=== PATIENT | male | born 1990 | race Caucasian/White ===

== ENCOUNTER 2016-10-05 16:35 | Inpatient (IN) | payer BC ==
[2016-10-05 19:13] VITALS: BMI 23.6
--- NOTE | 2016-10-05 21:10 | HP ---
COWS - Scale Resting Pulse: 0= PA 80 or Below Sweatin=Flushed/Facial Moisture Restless Observation: 3= Extraneous Movement Pupil Size: 2= Moderately Dilated Bone or Joint Aches: 2= Severe Diffuse Aches Runny Nose/ Eye Tearin= Runny Nose/Eyes GI Upset > 30mins: 2= Nausea/Diarrhea Tremor Observation: 2= Slight Tremor Visible Yawning Observation: 2= >3x During Session Anxiety or Irritability: 2=Irritable/Anxious Goose Flesh Skin: 0=Smooth Skin COWS Score: 19 Admission ROS S - HPI Chief Complaint: I NEED HELP TO STOP USING HEROIN,COCAINE AND XANAX Allergies/Adverse Reactions: Allergies Allergy/AdvReac Type Severity Reaction Status Date / Time No Known Allergies Allergy Verified 06/26/12 15:01 History of Present Illness: THIS 26 YEARS OLD MALE WITH HEROIN,COCAINE AND XANAX DEPENDENCE,SEEKING DETOX, LAST TREATMENT 04/30 IN [facility] LAST DETOX [facility] 06/26/12 TO 07/01/12 WEIGHT LOSS NICOTINE DEPENDENCE LONGEST PERIOD OF SOBRIETY 1 AND HALF YEARS - Ebola screening Have you traveled outside of the country in the last 21 days: No Have you had contact with anyone from an Ebola affected area: No Have you been sick,other than usual withdrawal symptoms: No Do you have a fever: No - Review of Systems Constitutional: Chills, Loss of Appetite, Malaise, Night Sweats, Changes in sleep, Unexplained wgt Loss EENT: reports: Tearing, Nose Congestion Respiratory: reports: No Symptoms reported Cardiac: reports: No Symptoms Reported GI: reports: Diarrhea, Nausea, Vomiting, Abdominal cramping : reports: No Symptoms Reported Musculoskeletal: reports: Back Pain, Joint Pain, Muscle Pain Integumentary: reports: Dryness Neuro: reports: Headache, Tremors Endocrine: reports: No Symptoms Reported Hematology: reports: No Symptoms Reported Psychiatric: reports: No Sypmtoms Reported, Judgement Intact, Mood/Affect Appropiate, Orientated x3 (INSOMNIA), Anxious, Depressed Patient History - Patient Medical History Hx Asthma: Yes (ON ALBUTROL INHALER) Hx Chronic Obstructive Pulmonary Disease (COPD): No Hx Cancer: No Hx Cardiac Disorders: No Hx Hypertension: No Hx Hypercholesterolemia: No Hx Pacemaker: No HX Cerebrovascular Accident: No Hx Seizures: Yes (DRUG WITHDRAWAL 04/02) Hx Dementia: No Hx Diabetes: No Hx Gastrointestinal Disorders: No Hx Genitourinary Disorders: No Hx Sexually Transmitted Disorders: No Hx Renal Disease (ESRD): No Hx Thyroid Disease: No Hx Human Immunodeficiency Virus (HIV): No (LAST 04/30 NEGATIVE) Hx Hepatitis C: No Hx Depression: Yes (currently not on treatment) Hx Suicide Attempt: No Hx Bipolar Disorder: No Hx Schizophrenia: No Other Medical History: ANXIETY,DEPRESSIN,INSOMNIA - Patient Surgical History Past Surgical History: No Hx Neurologic Surgery: No Hx Cataract Extraction: No Hx Cardiac Surgery: No Hx Lung Surgery: No Hx Breast Surgery: No Hx Breast Biopsy: No Hx Abdominal Surgery: No Hx Appendectomy: No Hx Cholecystectomy: No Hx Genitourinary Surgery: No Hx Section: No Hx Orthopedic Surgery: No Anesthesia Reaction: No - PPD History Previous Implant?: Yes Documented Results: Negative w/o proof Implanted On Prior [facility] Admission?: Yes Date: 06/28/12 PPD to be Administered?: Yes - Smoking Cessation Smoking history: Current every day smoker Have you smoked in the past 12 months: Yes Aproximately how many cigarettes per day: 20 Cigars Per Day: 0 Hx Chewing Tobacco Use: No Initiated information on smoking cessation: Yes 'Breaking Loose' booklet given: 10/05/16 - Substance & Tx. History Hx Alcohol Use: No Hx Substance Use: Yes Substance Use Type: Cocaine, Heroin, Prescribed Hx Substance Use Treatment: Yes ([facility] 06/26/12 TO 07/01/12 DETOX) - Substances Abused Heroin Route: Injection Frequency: Daily Amount used: 5 BAGS Age of first use: 17 Date of Last Use: 10/05/16 Alprazolam (Xanax) Route: Oral Frequency: 1-2 times per week Amount used: 4 MGS Age of first use: 17 Date of Last Use: 09/28/16 Cocaine Route: Injection Frequency: 1-2 times per week Amount used: 50$ Age of first use: 17 Date of Last Use: 10/03/16 Family Disease History - Family Disease History Family History: Denies Admission Physical Exam BHS - Vital Signs Vital Signs: Vital Signs - 24 hr 10/05/16 19:10 Temperature 98.2 F Pulse Rate 78 Respiratory 18 Rate Blood Pressure 105/62 - Physical General Appearance: Yes: Moderate Distress, Tremorous, Irritable, Sweating, Anxious HEENTM: Yes: Normal ENT Inspection, JHONATAN, Pharynx Normal Respiratory: Yes: Lungs Clear, Normal Breath Sounds, No Respiratory Distress Neck: Yes: Within Normal Limits Breast: Yes: Within Normal Limits Cardiology: Yes: Within Normal Limits, Regular Rhythm, Regular Rate, S1, S2 Abdominal: Yes: Within Normal Limits, Normal Bowel Sounds, Non Tender, Flat, Soft Genitourinary: Yes: Within Normal Limits Back: Yes: Muscle Spasm Musculoskeletal: Yes: full range of Motion, Back pain, Joint Stiffness Extremities: Yes: Normal Range of Motion, Tremors Neurological: Yes: Within Normal Limits, trimming assembler II-XII NML intact, Fully Oriented, Alert, Motor Strength 5/5 Integumentary: Yes: Dry Lymphatic: Yes: Within Normal Limits - Diagnostic (1) Opioid dependence with withdrawal Current Visit: Yes Status: Acute (2) Uncomplicated sedative, hypnotic or anxiolytic withdrawal Current Visit: Yes Status: Acute (3) Cocaine dependence Current Visit: Yes Status: Acute (4) Weight loss Current Visit: Yes Status: Acute (5) Nicotine dependence Current Visit: Yes Status: Acute (6) Anxiety and depression Current Visit: Yes Status: Acute (7) Insomnia Current Visit: Yes Status: Acute (8) Drug withdrawal seizure Current Visit: Yes Status: Acute Cleared for Admission [facility] - Detox or Rehab [facility] Level of Care: Medically Managed Detox Regimen/Protocol: Methadone [facility] Breath Alcohol Content Breath Alcohol Content: 0 Urine Drug Screen - Results Drug Screen Negative: No Urine Drug Screen Results: JULIA-Cocaine, OPI-Opiates
[2016-10-05] MEDS ORDERED: ACETAMINOPHEN 325 MG TABLET (FP) PO PRN (21:34)
[2016-10-05] MEDS ORDERED: MAGNESIUM HYDROX 2400MG/30ML ORAL SUSPENSION 30 ML CUP PO PRN (21:34)
[2016-10-05] MEDS ORDERED: MAGNESIUM CITRATE 300 ML BOTTLE PO PRN (21:34)
[2016-10-05] MEDS ORDERED: guaiFENesin/D-METHORPHAN HB 10 ML UNIT-DOSE CUPS PO PRN (21:34)
[2016-10-05] MEDS ORDERED: LOPERAMIDE HCL 2 MG CAPSULE PO PRN (21:34)
[2016-10-05] MEDS ORDERED: P-EPHED 60MG/TRIPROLIDI 2.5MG TABLET PO PRN (21:34)
[2016-10-05] MEDS ORDERED: diphenhydrAMINE HCL 50 MG CAPSULE PO PRN (21:34)
[2016-10-05] MEDS ORDERED: hydrOXYzine PAMOATE 25 MG CAPSULE (FP) PO PRN (21:34)
[2016-10-05] MEDS ORDERED: MAG HYDROX/AL HYDROX/SIMETH 30 ML UNIT-DOSE CUP PO PRN (21:34)
[2016-10-05] MEDS ORDERED: MENTHOL/PHENOL 1 EACH UD MM PRN (21:34)
[2016-10-05] MEDS ORDERED: IBUPROFEN 400 MG TABLET (FP) PO PRN (21:34)
[2016-10-05] MEDS ORDERED: METHADONE HCL 10 MG TABLET (FOR DETOX USE ONLY) PO ONE ×2 (21:34→23:00)
[2016-10-05] MEDS ORDERED: NICOTINE POLACRILEX 2 MG GUM BC PRN (21:34)
[2016-10-05] MEDS ORDERED: ALBUTEROL SO4 6.7 GM HFA INHALER IH PRN (21:38)
[2016-10-05] MEDS: CYCLOBENZAPRINE HCL 10 MG TABLET (FP) PO PRN (22:40)
[2016-10-05] MEDS: THIAMINE HCL 100 MG TABLET (FP) PO SCH (22:41)
[2016-10-05] MEDS: cloNIDine HCL 0.1 MG TABLET PO SCH (22:41)
[2016-10-05] MEDS: NICOTINE 21 MG/24 HOURS TOPICAL PATCH TD SCH (22:42)
[2016-10-06] MEDS ORDERED: METHADONE HCL 10 MG TABLET (FOR DETOX USE ONLY) PO ONE (10:00)
[2016-10-06 10:05] LABS: MCH 29.4 pg (25.7-33.7); MCHC 33.3 g/dl (32.0-35.9); MEAN CELL VOLUME 88.1 fl (80-96); MEAN PLT VOLUME 8.2 fl (7.5-11.1); PLATELET COUNT 262 K/MM3 (134-434); RDW 12.9 % (11.9-15.9); WHITE BLOOD COUNT 7.2 K/mm3 (4.0-10.0)
[2016-10-06] MEDS: NICOTINE 21 MG/24 HOURS TOPICAL PATCH TD SCH (10:25)
[2016-10-06] MEDS: cloNIDine HCL 0.1 MG TABLET PO SCH ×2 (10:25→22:20)
[2016-10-06] MEDS: PRENATAL VITAMINS W/ FOLIC ACID TABLET (FP) PO SCH (10:25)
[2016-10-06 10:31] LABS: ALBUMIN 3.3 g/dl (3.4-5.0); ANION GAP 7 (8-16); CALCIUM 8.8 mg/dL (8.5-10.1); CO2 30 mmol/L (21-32); GLUCOSE,RANDOM 106 mg/dL (74-106)
[2016-10-06 10:35] LABS: ALK PHOS 78 U/L (45-117); BILIRUBIN,TOTAL 0.5 mg/dL (0.2-1.0); SGOT/AST 20 U/L (15-37); SGPT/ALT 26 U/L (12-78); TOT PROT 6.3 g/dl (6.4-8.2)
--- NOTE | 2016-10-06 10:42 | CONSULT ---
[facility] Psychiatric Consult - Data Date of interview: 10/06/16 Admission source: [facility] Identifying data: Patient is approached at bedside for psychiatric interview.He refused.Nursing staff is made aware.
--- NOTE | 2016-10-06 11:31 | EKG ---
Test Reason : Blood Pressure : / mmHG Vent. Rate : 065 BPM Atrial Rate : 065 BPM P-R Int : 118 ms QRS Dur : 086 ms QT Int : 382 ms P-R-T Axes : 045 067 064 degrees QTc Int : 397 ms NORMAL SINUS RHYTHM NORMAL ECG NO PREVIOUS ECGS AVAILABLE Confirmed by DEAN MONTAÑO, CODY ([id number]) on 10/06/2016 11:31:17 AM Referred By: Jose Maria Arredondo Confirmed By:CODY MORAN MD
[2016-10-06] MEDS: diazePAM 5 MG TABLET PO PRN ×2 (12:56→22:19)
--- NOTE | 2016-10-06 13:07 | PN ---
BHS COWS - Scale Resting Pulse: 0= [place] 80 or Below Sweatin= Chills/Flushing Restless Observation: 0= Sits Still Pupil Size: 0= Normal to Room Light Bone or Joint Aches: 2= Severe Diffuse Aches Runny Nose/ Eye Tearin= Runny Nose/Eyes GI Upset > 30mins: 2= Nausea/Diarrhea Tremor Observation of Outstretched Hands: 2= Slight Tremor Visible Yawning Observation: 1= 1-2x During Session Anxiety or Irritability: 4=Extreme Anxiety Goose Flesh Skin: 3=Piloerection COWS Score: 17 BHS Progress Note (SOAP) Subjective: Body Aches, Fatigue, Anxious, Interrupted sleep, Diarrhea. Objective: PT. A & O X 3, OBSERVED AMBULATING ON UNIT. NO ACUTE DISTRESS. 10/06/16 13:06 Vital Signs Temperature 98.6 F 10/06/16 10:20 Pulse Rate 62 10/06/16 10:20 Respiratory Rate 20 10/06/16 10:20 Blood Pressure 91/52 10/06/16 10:20 O2 Sat by Pulse Oximetry (%) Laboratory Tests 10/06/16 10/06/16 07:00 07:00 WBC 7.2 RBC 4.52 Hgb 13.3 Hct 39.8 MCV 88.1 MCH 29.4 MCHC 33.3 RDW 12.9 Plt Count 262 MPV 8.2 Sodium 139 Potassium 4.3 Chloride 102 Carbon Dioxide 30 Anion Gap 7 L BUN 23 H D Creatinine 1.0 Creat Clearance w eGFR > 60 Random Glucose 106 D Calcium 8.8 Total Bilirubin 0.5 AST 20 D ALT 26 D Alkaline Phosphatase 78 Total Protein 6.3 L Albumin 3.3 L LABS NOTED. RPR AND UA RESULTS PENDING. 10/06/16 13:07 10/06/16 13:08 Assessment: 10/06/16 13:06 WITHDRAWAL SYMPTOMS. Plan: CONTINUE DETOX. INCREASE PO FLUID INTAKE.
[2016-10-06] MEDS ORDERED: ONDANSETRON *ODT* 4 MG TABLET SL PRN (14:29)
[2016-10-06] MEDS: CYCLOBENZAPRINE HCL 10 MG TABLET (FP) PO PRN (22:18)
[2016-10-06] MEDS: THIAMINE HCL 100 MG TABLET (FP) PO SCH (22:18)
[2016-10-07] MEDS ORDERED: METHADONE HCL 5 MG TABLET (FOR DETOX USE ONLY) PO ONE (10:00)
[2016-10-07] MEDS: PRENATAL VITAMINS W/ FOLIC ACID TABLET (FP) PO SCH (10:32)
[2016-10-07] MEDS: cloNIDine HCL 0.1 MG TABLET PO SCH ×2 (10:32→22:11)
[2016-10-07] MEDS: diazePAM 5 MG TABLET PO PRN ×3 (10:32→19:48)
[2016-10-07] MEDS: NICOTINE 21 MG/24 HOURS TOPICAL PATCH TD SCH (10:33)
--- NOTE | 2016-10-07 12:46 | PN ---
BHS COWS - Scale Resting Pulse: 0= SC 80 or Below Sweatin= Chills/Flushing Restless Observation: 1= Difficult to Sit Still Pupil Size: 0= Normal to Room Light Bone or Joint Aches: 2= Severe Diffuse Aches Runny Nose/ Eye Tearin= Runny Nose/Eyes GI Upset > 30mins: 1= Stomach Cramp Tremor Observation of Outstretched Hands: 2= Slight Tremor Visible Yawning Observation: 1= 1-2x During Session Anxiety or Irritability: 4=Extreme Anxiety Goose Flesh Skin: 3=Piloerection COWS Score: 17 S Progress Note (SOAP) Subjective: Interrupted sleep, Anxious, Fatigue. Objective: PT. A & O X 3. NO ACUTE DISTRESS. 10/07/16 12:45 Vital Signs Temperature 97.3 F L 10/07/16 09:49 Pulse Rate 57 L 10/07/16 09:49 Respiratory Rate 18 10/07/16 09:49 Blood Pressure 114/61 10/07/16 09:49 O2 Sat by Pulse Oximetry (%) Laboratory Tests 10/06/16 10/06/16 10/06/16 07:00 07:00 07:00 WBC 7.2 RBC 4.52 Hgb 13.3 Hct 39.8 MCV 88.1 MCH 29.4 MCHC 33.3 RDW 12.9 Plt Count 262 MPV 8.2 Sodium 139 Potassium 4.3 Chloride 102 Carbon Dioxide 30 Anion Gap 7 L BUN 23 H D Creatinine 1.0 Creat Clearance w eGFR > 60 Random Glucose 106 D Calcium 8.8 Total Bilirubin 0.5 AST 20 D ALT 26 D Alkaline Phosphatase 78 Total Protein 6.3 L Albumin 3.3 L RPR Titer Nonreactive LABS NOTED. Assessment: 10/07/16 12:45 WITHDRAWAL SYMPTOMS. Plan: CONTINUE DETOX. INCREASE PO FLUID INTAKE.
[2016-10-07] MEDS: THIAMINE HCL 100 MG TABLET (FP) PO SCH (22:11)
[2016-10-07] MEDS: CYCLOBENZAPRINE HCL 10 MG TABLET (FP) PO PRN (22:11)
[2016-10-08 06:15] VITALS: BP 86/53; PULSE 57
[2016-10-08] MEDS: diazePAM 5 MG TABLET PO PRN ×2 (06:25→11:36)
[2016-10-08] MEDS ORDERED: METHADONE HCL 5 MG TABLET (FOR DETOX USE ONLY) PO ONE (10:00)
[2016-10-08 10:26] VITALS: TEMP 98.1
[2016-10-08] MEDS: cloNIDine HCL 0.1 MG TABLET PO SCH (10:50)
[2016-10-08] MEDS: PRENATAL VITAMINS W/ FOLIC ACID TABLET (FP) PO SCH (10:55)
[2016-10-08] MEDS: NICOTINE 21 MG/24 HOURS TOPICAL PATCH TD SCH (10:55)
--- NOTE | 2016-10-08 11:56 | PN ---
BHS Progress Note (SOAP) Subjective: interrupted sleep, sweats, decreased appetite Objective: 10/08/16 11:54 Vital Signs Temperature 98.1 F 10/08/16 10:25 Pulse Rate 57 L 10/08/16 06:14 Respiratory Rate 18 10/08/16 06:14 Blood Pressure 86/53 10/08/16 06:14 O2 Sat by Pulse Oximetry (%) Laboratory Tests 10/06/16 10/06/16 10/06/16 07:00 07:00 07:00 WBC 7.2 RBC 4.52 Hgb 13.3 Hct 39.8 MCV 88.1 MCH 29.4 MCHC 33.3 RDW 12.9 Plt Count 262 MPV 8.2 Sodium 139 Potassium 4.3 Chloride 102 Carbon Dioxide 30 Anion Gap 7 L BUN 23 H D Creatinine 1.0 Creat Clearance w eGFR > 60 Random Glucose 106 D Calcium 8.8 Total Bilirubin 0.5 AST 20 D ALT 26 D Alkaline Phosphatase 78 Total Protein 6.3 L Albumin 3.3 L RPR Titer Nonreactive pt aox3 in nad ambulating Assessment: 10/08/16 11:55 withdrawal sx's Plan: cont. detox increase fluids
--- NOTE | 2016-10-08 14:04 | DS ---
[facility] Detox Discharge Summary Admission Date: 10/05/16 Discharge Date: 10/08/16 - History Present History: Cocaine Dependence, Opioid Dependence, Sedative Dependence Additional Comments: PT DECLINED TO CONTINUE WITH DETOX STATING FAMILY REASONS. ALERT O X 3. NAD. ENCOURAGED PT TO COMPLETE TX BUT TO NO AVAIL. INSTRUCTED PT TO FOLLOW UP WITH AFTERCARE REFERRAL AND PMD FOR MEDICAL MANAGEMENT NEEDED. Pertinent Past History: ASTHMA DEPRESSION - Physical Exam Results Vital Signs: Vital Signs Temperature 98.1 F 10/08/16 10:25 Pulse Rate 57 L 10/08/16 06:14 Respiratory Rate 18 10/08/16 06:14 Blood Pressure 86/53 10/08/16 06:14 O2 Sat by Pulse Oximetry (%) Pertinent Admission Physical Exam Findings: WITHDRAWAL SX Laboratory Last Values WBC 7.2 K/mm3 (4.0-10.0) 10/06/16 07:00 RBC 4.52 M/mm3 (4.00-5.60) 10/06/16 07:00 Hgb 13.3 GM/dL (11.7-16.9) 10/06/16 07:00 Hct 39.8 % (35.4-49) 10/06/16 07:00 MCV 88.1 fl (80-96) 10/06/16 07:00 MCH 29.4 pg (25.7-33.7) 10/06/16 07:00 MCHC 33.3 g/dl (32.0-35.9) 10/06/16 07:00 RDW 12.9 % (11.9-15.9) 10/06/16 07:00 Plt Count 262 K/MM3 (134-434) 10/06/16 07:00 MPV 8.2 fl (7.5-11.1) 10/06/16 07:00 Sodium 139 mmol/L (136-145) 10/06/16 07:00 Potassium 4.3 mmol/L (3.5-5.1) 10/06/16 07:00 Chloride 102 mmol/L (98-107) 10/06/16 07:00 Carbon Dioxide 30 mmol/L (21-32) 10/06/16 07:00 Anion Gap 7 (8-16) L 10/06/16 07:00 BUN 23 mg/dL (7-18) H D 10/06/16 07:00 Creatinine 1.0 mg/dL (0.7-1.3) 10/06/16 07:00 Creat Clearance w eGFR > 60 (>60) 10/06/16 07:00 Random Glucose 106 mg/dL (74-106) D 10/06/16 07:00 Calcium 8.8 mg/dL (8.5-10.1) 10/06/16 07:00 Total Bilirubin 0.5 mg/dL (0.2-1.0) 10/06/16 07:00 AST 20 U/L (15-37) D 10/06/16 07:00 ALT 26 U/L (12-78) D 10/06/16 07:00 Alkaline Phosphatase 78 U/L (45-117) 10/06/16 07:00 Total Protein 6.3 g/dl (6.4-8.2) L 10/06/16 07:00 Albumin 3.3 g/dl (3.4-5.0) L 10/06/16 07:00 RPR Titer Nonreactive (NONREACTIVE) 10/06/16 07:00 - Treatment Hospital Course: Discharged Condition Good - Medication Discharge Medications: Ambulatory Orders Albuterol Sulfate Inhaler - [Ventolin HFA Inhaler -] 2 inh IH Q4H PRN 06/26/12 - Diagnosis (1) Cocaine dependence Current Visit: Yes Status: Acute Qualifiers: Substance use status: uncomplicated Qualified Code(s): F14.20 - Cocaine dependence, uncomplicated (2) Nicotine dependence Current Visit: Yes Status: Acute Qualifiers: Nicotine product type: cigarettes Substance use status: in withdrawal Qualified Code(s): F17.213 - Nicotine dependence, cigarettes, with withdrawal (3) Opioid dependence with withdrawal Current Visit: Yes Status: Acute (4) Asthma Current Visit: Yes Status: Chronic Qualifiers: Asthma severity: mild intermittent Asthma complication type: uncomplicated Qualified Code(s): J45.20 - Mild intermittent asthma, uncomplicated - AMA Did Patient Leave Against Medical Advice: Yes (AMA)
[2016-10-09] MEDS ORDERED: METHADONE HCL 10 MG TABLET (FOR DETOX USE ONLY) PO ONE (10:00)
[2016-10-10] MEDS ORDERED: METHADONE HCL 5 MG TABLET (FOR DETOX USE ONLY) PO ONE (06:00)
== END 2016-10-08 13:20 | disposition left against medical advice (07) | DRG 770 ==
LOC: YASAS 16:35 → Y3N 21:29
PROVIDERS: ADMIT Internal Medicine; ATTEND Internal Medicine
PROC: HZ2ZZZZ Detoxification Services for Substance Abuse Treatment (ICD-10-PCS; principal; 2016-10-08)
DX: F11.23 Opioid dependence with withdrawal (principal); F14.20 Cocaine dependence, uncomplicated; F17.213 Nicotine dependence, cigarettes, with withdrawal; F41.8 Other specified anxiety disorders; J45.20 Mild intermittent asthma, uncomplicated; G47.00 Insomnia, unspecified; G40.509 Epileptic seizures related to external causes, not intractable, without status epilepticus; R63.4 Abnormal weight loss; Z68.23 Body mass index [BMI] 23.0-23.9, adult
CPT/HCPCS: 36415; 71010-TC; 80053; 85027; 86593; 93005; 93010